=== PATIENT | male | born 1990 | race African-American/Black ===

== ENCOUNTER 2019-09-29 02:06 | Emergency (ER) | payer MEDICAID, OTHER ==
--- NOTE | 2019-09-29 02:35 | PHYS DOC ---
Adult General Chief Complaint Chief Complaint: CHEST PAIN [facility] HPI 28-year-old male with no past medical history presents to the emergency Department complaints of chest pain. Patient states pain started yesterday in the center aspect of his chest, no radiation. Described as a burning, twisting pain. He states he drank milk yesterday and improve the pain. Today the pain returned and has not gone away. He has had intermittent cough. Does describe some acid reflux disease. He denies any nausea, vomiting, shortness of breath, diaphoresis. Current blood pressure 131/81, heart rate 82 EKG is reviewed 0-15 with normal sinus rhythm, heart rate 87, left axis deviation, no evidence of ST elevation [place]. Nothing makes his pain worse, milk improved his pain yesterday. Review of Systems Review of Systems Constitutional: Denies fever or chills [] Respiratory: cough yesterday however not today, no shortness of breath [] Cardiovascular: No additional information not addressed in HPI [] Abdominal: epigastric tenderness/gas Musculoskeletal: Denies back pain or joint pain [] Integument: Denies rash or skin lesions [] Neurologic: Denies headache, focal weakness or sensory changes [] All other systems were reviewed and found to be within normal limits, except as documented in this note. Current Medications Current Medications Current Medications Medications (Trade) Dose Ordered Sig/Tyree Start Time Stop Time Status Last Admin Dose Admin Aspirin (Children'S Aspirin) 324 mg 1X ONCE 09/29/19 02:45 09/29/19 02:46 DC 09/29/19 02:53 324 MG Multi-Ingredient Mouthwash/Gargle (Gi Cocktail) 20 ml 1X ONCE 09/29/19 02:45 09/29/19 02:46 DC 09/29/19 02:53 20 ML Allergies Allergies Allergies Coded Allergies Type Severity Reaction Last Updated Verified No Known Drug Allergies 09/29/19 No Physical Exam Physical Exam Constitutional: Well developed, well nourished, no acute distress, non-toxic appearance. [] HENT: Normocephalic, atraumatic, bilateral external ears normal, oropharynx moist, no oral exudates, nose normal. [] Eyes: PERRLA, EOMI, conjunctiva normal, no discharge. [] Cardiovascular:Heart rate regular rhythm, no murmur [] Lungs & Thorax: Bilateral breath sounds clear to auscultation [] Abdomen: Bowel sounds normal, soft, no tenderness, no masses, no pulsatile masses. [] Skin: Warm, dry, no erythema, no rash. [] Extremities: No tenderness, no edema. [] Neurologic: Alert and oriented X 3, no focal deficits noted. [] Psychologic: Affect normal, judgement normal, mood normal. [] Current Patient Data Vital Signs Vital Signs Date Time Temp Pulse Resp B/P (MAP) Pulse Ox O2 Delivery O2 Flow Rate FiO2 09/29/19 02:37 98.6 92 22 131/81 (98) 97 Room Air 98.6 Lab Values Laboratory Tests Test 09/29/19 02:17 White Blood Count 6.4 x10^3/uL (4.0-11.0) Red Blood Count 4.55 x10^6/uL (4.30-5.70) Hemoglobin 14.5 g/dL (13.0-17.5) Hematocrit 41.9 % (39.0-53.0) Mean Corpuscular Volume 92 fL (79-100) Mean Corpuscular Hemoglobin 32 pg (25-35) Mean Corpuscular Hemoglobin Concent 35 g/dL (31-37) Red Cell Distribution Width 12.9 % (11.5-14.5) Platelet Count 326 x10^3/uL (140-400) Neutrophils (%) (Auto) 50 % (31-73) Lymphocytes (%) (Auto) 38 % (24-48) Monocytes (%) (Auto) 9 % (0-9) Eosinophils (%) (Auto) 3 % (0-3) Basophils (%) (Auto) 1 % (0-3) Neutrophils # (Auto) 3.2 x10^3/uL (1.8-7.7) Lymphocytes # (Auto) 2.4 x10^3/uL (1.0-4.8) Monocytes # (Auto) 0.6 x10^3/uL (0.0-1.1) Eosinophils # (Auto) 0.2 x10^3/uL (0.0-0.7) Basophils # (Auto) 0.0 x10^3/uL (0.0-0.2) Sodium Level 139 mmol/L (136-145) Potassium Level 3.3 mmol/L (3.5-5.1) L Chloride Level 101 mmol/L (98-107) Carbon Dioxide Level 29 mmol/L (21-32) Anion Gap 9 (6-14) Blood Urea Nitrogen 7 mg/dL (8-26) L Creatinine 0.8 mg/dL (0.7-1.3) Estimated GFR (Cockcroft-Gault) 138.3 BUN/Creatinine Ratio 9 (6-20) Glucose Level 102 mg/dL (70-99) H Calcium Level 8.8 mg/dL (8.5-10.1) Magnesium Level 1.7 mg/dL (1.8-2.4) L Total Bilirubin 0.6 mg/dL (0.2-1.0) Aspartate Amino Transferase (AST) 29 U/L (15-37) Alanine Aminotransferase (ALT) 42 U/L (16-63) Alkaline Phosphatase 128 U/L (46-116) H Troponin I Quantitative < 0.017 ng/mL (0.000-0.055) Total Protein 7.6 g/dL (6.4-8.2) Albumin 3.7 g/dL (3.4-5.0) Albumin/Globulin Ratio 0.9 (1.0-1.7) L Lipase 138 U/L (73-393) Laboratory Tests 09/29/19 02:17 Laboratory Tests 09/29/19 02:17 EKG EKG EKG interpretation 0-15, normal sinus rhythm, heart rate 87, left axis deviation, no STEMI[] Radiology/Procedures Radiology/Procedures [] Course & Med Decision Making Course & Med Decision Making Pertinent Labs and Imaging studies reviewed. (See chart for details) []28-year-old male with no past medical history presents to the emergency Department complaints of chest pain. Patient states pain started yesterday in the center aspect of his chest, no radiation. Described as a burning, twisting pain. He states he drank milk yesterday and improve the pain. Today the pain returned and has not gone away. He has had intermittent cough. Does describe some acid reflux disease. He denies any nausea, vomiting, shortness of breath, diaphoresis. Current blood pressure 131/81, heart rate 82 EKG is reviewed 0-15 with normal sinus rhythm, heart rate 87, left axis deviation, no evidence of ST elevation [place]. Nothing makes his pain worse, milk improved his pain yesterday. GI cocktail provided in ER with improved chest/epigastric discomfort Reassessment - 0326, no evidence of pain on exam Labs reviewed Recommend treatment for GERD Return precautions provided EKG reviewed as above Discussed dc plans with patient Derrick Disclaimer Derrick Disclaimer This electronic medical record was generated, in whole or in part, using a voice recognition dictation system. The HEART Score for CP Pts HEART Score for Chest Pain: HEART Score for Chest Pain Response (Comments) Value History Slighlty/Non-Suspicious 0 ECG Normal 0 Age < 45 0 Risk Factors No Risk Factors 0 Troponin < Normal Limit 0 Total 0 Risk Factors: Risk Factors: DM, Current or recent (<one month) smoker, HTN, HLP, family history of CAD, obesity. Risk Scores: Score 0 - 3: 2.5% MACE over next 6 weeks - Discharge Home Score 4 - 6: 20.3% MACE over next 6 weeks - Admit for Clinical Observation Score 7 - 10: 72.7% MACE over next 6 weeks - Early Invasive Strategies Departure Departure Impression: Primary Impression: GERD (gastroesophageal reflux disease) Disposition: HOME, SELF-CARE Condition: IMPROVED Patient Instructions: Diet for Gastroesophageal Reflux Disease, Adult, [id number], Gastroesophageal Reflux Disease, Adult, [id number] Additional Instructions: Recommend follow up with PCP 3 - 5 days Return to the ER with worsening symptoms, intractable pain, fever, altered mental status Tylenol/Motrin as needed for pain Take new medications as prescribed See dietary changes for GERD Scripts Pantoprazole Sodium (PROTONIX ) 40 Mg Tablet. 40 MG PO DAILY for GERD, #30 TAB Prov: MICHAEL RODRIGUEZ MD 09/29/19 Problem Qualifiers Primary Impression: GERD (gastroesophageal reflux disease) Esophagitis presence: esophagitis presence not specified Qualified Codes: K21.9 - Gastro-esophageal reflux disease without esophagitis MICHAEL RODRIGUEZ MD Sep 29, 2019 02:35
[2019-09-29] MEDS ORDERED: ASPIRIN CHEWABLE 81 MG TABLET. PO ONE (02:45)
[2019-09-29] MEDS ORDERED: LIDO:MAALOX 1:1 20 ML SINGLE DOSE. SWSW ONE (02:45)
[2019-09-29 03:06] LABS: BASO % 1 % (0-3); EOS # 0.2 x10^3/uL (0.0-0.7); EOS % 3 % (0-3); HEMATOCRIT 41.9 % (39.0-53.0); HEMOGLOBIN 14.5 g/dL (13.0-17.5); LYMPH # 2.4 x10^3/uL (1.0-4.8); LYMPH % 38 % (24-48); MEAN CORPUSCULAR HEMOGLOBIN 32 pg (25-35); MEAN CORPUSCULAR HGB CONC 35 g/dL (31-37); MEAN CORPUSCULAR VOLUME 92 fL (79-100); MONO # 0.6 x10^3/uL (0.0-1.1); MONO % 9 % (0-9); NEUT # 3.2 x10^3/uL (1.8-7.7); NEUT % 50 % (31-73); PLATELET COUNT 326 x10^3/uL (140-400); RED BLOOD COUNT 4.55 x10^6/uL (4.30-5.70); RED CELL DISTRIBUTION WIDTH 12.9 % (11.5-14.5); WHITE BLOOD COUNT 6.4 x10^3/uL (4.0-11.0)
[2019-09-29 03:15] LABS: CALCIUM 8.8 mg/dL (8.5-10.1); CREATININE 0.8 mg/dL (0.7-1.3); GFR 138.3; POTASSIUM 3.3 mmol/L (3.5-5.1)
[2019-09-29 03:21] LABS: ALBUMIN 3.7 g/dL (3.4-5.0); ALBUMIN/GLOBULIN RATIO 0.9 (1.0-1.7); MAGNESIUM 1.7 mg/dL (1.8-2.4); TOTAL BILIRUBIN 0.6 mg/dL (0.2-1.0); TOTAL PROTEIN 7.6 g/dL (6.4-8.2)
[2019-09-29] MEDS ORDERED: PANT40TA77 PO (03:30)
[2019-09-29 03:50] VITALS: BP 121/67
[2019-09-29] MEDS ORDERED: MAGNESIUM OXIDE 400 MG TABLET ONE (03:57)
[2019-09-29] MEDS ORDERED: POTASSIUM CHLORIDE 20 MEQ TABLET.ER. PO ONE (04:00)
--- NOTE | 2019-09-29 06:38 | RAD ---
Chest AP portable at 0246: Reason for examination: Chest pain. The heart size is normal. Mediastinum is unremarkable. Lung bucio are clear. No acute bony abnormalities are seen. Impression: No acute cardiopulmonary disease. Electronically signed by: Hoda Dominguez MD (09/29/2019 6:35 AM) [facility]
--- NOTE | 2019-09-29 07:41 | EKG ---
[facility] [address] [place] [address] Test Date: 2019-09-29 Test Time: 02:15:17 Pat Name: PATSY CORREA Department: Room: Gender: M General Internist: ALMA ROSA : 1990 Requested By: MICHAEL RODRIGUEZ Order Number: [id number] Reading MD: Measurements Intervals [place] Rate: 87 P: 26 NE: 162 QRS: -13 QRSD: 94 T: 29 QT: 338 QTc: 407 Interpretive Statements SINUS RHYTHM LEFTWARD AXIS R-S TRANSITION ZONE IN V LEADS DISPLACED TO THE LEFT QRS(T) CONTOUR ABNORMALITY CONSIDER ANTEROSEPTAL MYOCARDIAL DAMAGE POSSIBLY ABNORMAL ECG RI6.01 No previous ECG available for comparison
[2019-09-29] MEDS ORDERED: MAGNESIUM OXIDE 400 MG TABLET PO SCH (09:00)
== END 2019-09-29 03:55 | disposition home or self-care (01) ==
LOC: ER 02:06
DX: K21.9 Gastro-esophageal reflux disease without esophagitis (principal); R07.89 Other chest pain
CPT/HCPCS: 36415; 71045; 80053; 83690; 83735; 84484; 85025; 93005; 99285-25

== ENCOUNTER 2020-08-06 17:10 | Emergency (ER) | payer OTHER ==
[~2020-08-06] VITALS: Ht 154.9 cm; Wt 67.0 kg
[~2020-08-06 17:10] MED LIST: PANT40TA77 PO
[2020-08-06 18:27] VITALS: BP 144/98
[2020-08-06] MEDS ORDERED: PENI500T PO (18:52)
[2020-08-06] MEDS ORDERED: CHLO15MO2 PO (18:52)
[2020-08-06] MEDS ORDERED: HYDR-3164 PO (18:52)
--- NOTE | 2020-08-06 18:52 | PHYS DOC ---
Past Medical History Smoking Status: Never Smoker Alcohol Use: None General Adult EDM: Chief Complaint: DENTAL PROBLEM HPI: HPI: Patient is a 29 year old male who presents with 2 days of right upper back molar tooth pain. 1+ right facial swelling. Patient states he does not have a dentist. He has many dental caries and broken teeth upon examination. Patient denies any other past medical history. Rates his pain a 10 out of 10. He states he has not taken any medicine for his pain. Patient denies fever, nausea, vomiting, diarrhea, body aches, headache, dizziness, chest pain, shortness of air. Review of Systems: Review of Systems: Constitutional: Denies fever or chills. [] Eyes: Denies change in visual acuity. [] HENT: Denies nasal congestion or sore throat. + Dental pain [] Respiratory: Denies cough or shortness of breath. [] Cardiovascular: Denies chest pain or edema. [] GI: Denies abdominal pain, nausea, vomiting, bloody stools or diarrhea. [] : Denies dysuria. [] Musculoskeletal: Denies back pain or joint pain. [] Integument: Denies rash. +gumline redness and swelling 1+ [] Neurologic: Denies headache, focal weakness or sensory changes. [] Endocrine: Denies polyuria or polydipsia. [] Lymphatic: Denies swollen glands. [] Psychiatric: Denies depression or anxiety. [] Heart Score: Risk Factors: Risk Factors: DM, Current or recent (<one month) smoker, HTN, HLP, family history of CAD, obesity. Risk Scores: Score 0 - 3: 2.5% MACE over next 6 weeks - Discharge Home Score 4 - 6: 20.3% MACE over next 6 weeks - Admit for Clinical Observation Score 7 - 10: 72.7% MACE over next 6 weeks - Early Invasive Strategies Allergies: Allergies: Allergies Coded Allergies Type Severity Reaction Last Updated Verified No Known Drug Allergies 09/29/19 No Physical Exam: PE: Constitutional: Well developed, well nourished, no acute distress, non-toxic appearance. [] HENT: Normocephalic, atraumatic, bilateral external ears normal, oropharynx moist, no oral exudates, nose normal. Dental caries generalized, right upper back gumline redness 1+ swelling. 1+ right side of face swelling. [] Eyes: PERRLA, EOMI, conjunctiva normal, no discharge. [] Neck: Normal range of motion, no tenderness, supple, no stridor. [] Cardiovascular:Heart rate regular rhythm, no murmur [] Lungs & Thorax: Bilateral breath sounds clear to auscultation [] Abdomen: Bowel sounds normal, soft, no tenderness, no masses, no pulsatile masses. [] Skin: Warm, dry, no erythema, no rash. [] Back: No tenderness, no CVA tenderness. [] Extremities: No tenderness, no cyanosis, no clubbing, ROM intact, no edema. [] Neurologic: Alert and oriented X 3, normal motor function, normal sensory function, no focal deficits noted. [] Psychologic: Affect normal, judgement normal, mood normal. [] EKG: EKG: [] Radiology/Procedures: Radiology/Procedures: [] Course & Med Decision Making: Course & Med Decision Making Pertinent Labs and Imaging studies reviewed. (See chart for details) See HPI. Denies radiation of pain. No abscesses felt or seen. There is no drainage from the tooth of the gumline. There is slight gumline swelling and redness to the right upper back gumline. Many dental caries and broken teeth. No tenderness with palpation to the inside of the mouth, or the gumline. Patient will be given antibiotic and resources for dentist. [] Derrick Disclaimer: Derrick Disclaimer: This electronic medical record was generated, in whole or in part, using a voice recognition dictation system. Departure Departure Impression: Primary Impression: Pain, dental Additional Impression: Dental abscess Disposition: 01 DC HOME SELF CARE/HOMELESS Condition: STABLE Referrals: NO PCP (PCP) Patient Instructions: Dental Abscess, Dental Caries Additional Instructions: Follow-up with a dentist as soon as possible. Take medication as prescribed. Remove this pain medication will make you sleepy so do not drive, work or drink alcohol with this medication. Take antibiotic with food and as prescribed. Scripts Hydrocodone/Apap 5-325 (NORCO 5-325 TABLET) 1 Each Tablet 1 TAB PO PRN Q6HRS PRN for PAIN, #8 TAB 0 Refills Prov: RUSTYGONZALES GUERREROMona Pool LINE DANCER 08/06/20 Chlorhexidine Gluconate (PERIDEX) 15 Ml Mouthwash 15-30 ML PO TID for 8 Days, #473 ML 0 Refills Prov: LAMONTE JAVIER APRN 08/06/20 Penicillin V Potassium (PENICILLIN V POTASSIUM) 500 Mg Tablet 1 TAB PO QID, #40 TAB Prov: LAMONTE JAVIER APRN 08/06/20 LAMONTE JAVIER APRN Aug 06, 2020 18:52
== END 2020-08-06 18:57 | disposition home or self-care (01) ==
LOC: ER 17:10
DX: K04.7 Periapical abscess without sinus (principal)
CPT/HCPCS: 99283